=== PATIENT | female | born 1955 | race African-American/Black ===

== ENCOUNTER 2021-03-04 17:50 | Observation (INO) | payer OTHER ==
[2021-03-04 20:31] LABS: BASO % 0.9 % (0-2.0); EOS % 2.6 % (0-4.5); HEMOGLOBIN 11.3 GM/dL (10.7-15.3); LYMPH % 29.4 % (8-40); MCH 29.3 pg (25.7-33.7); MCHC 33.3 g/dl (32.0-36.0); MEAN PLT VOLUME 9.6 fl (7.5-11.1); MONO % 7.6 % (3.8-10.2); NEUT % 59.5 % (42.8-82.8); PLATELET COUNT 217 K/MM3 (134-434); RBC 3.86 M/mm3 (3.60-5.2); WHITE BLOOD COUNT 6.5 K/mm3 (4.0-10.0)
[2021-03-04 20:56] LABS: CALCIUM 9.5 mg/dL (8.5-10.1)
[2021-03-04 20:57] LABS: ALBUMIN 3.3 g/dl (3.4-5.0)
[2021-03-04 21:01] LABS: BILIRUBIN,TOTAL 0.3 mg/dL (0.2-1)
[2021-03-04 21:02] LABS: TOT PROT 7.3 g/dl (6.4-8.2)
[2021-03-04 21:31] LABS: EPI CELLS 13 /uL (0-25.1); HYALINE CASTS 1 /uL (0-3.1); PH,URINE 6.5 (5.0-8.0); URINE APPEARANCE CLEAR; URINE BACTERIA 957 /uL (0-1359); URINE BILIRUBIN NEGATIVE (NEGATIVE); URINE COLOR YELLOW; URINE GLUCOSE (UA) NEGATIVE (NEGATIVE); URINE KETONE NEGATIVE (NEGATIVE); URINE LEUK ESTERASE NEGATIVE (NEGATIVE); URINE NITRITE NEGATIVE (NEGATIVE); URINE PROTEIN NEGATIVE (NEGATIVE); URINE RBC 114 /uL (0-23.9); URINE WBC 21 /uL (0-25.8)
[2021-03-04] MEDS ORDERED: LIDOCAINE PATCH REMOVAL MC SCH (22:00)
[2021-03-04] MEDS ORDERED: ACETAMINOPHEN 1000 MG/100 ML BAG IVPB ONE (22:25)
[2021-03-04] MEDS ORDERED: LIDOCAINE 5% TOPICAL PATCH TP ONE (22:25)
[2021-03-04] MEDS ORDERED: LIDOCAINE 5% TOPICAL PATCH ONE (22:35)
[2021-03-04] MEDS ORDERED: ACETAMINOPHEN INJECTION 100 ML IVPB ONE (22:35)
[2021-03-05] MEDS ORDERED: ACETAMINOPHEN 325 MG TABLET (FP) PO PRN (00:38)
[2021-03-05 02:44] VITALS: BMI 33.3
[2021-03-05 03:57] LABS: URINE APPEARANCE CLEAR; URINE BILIRUBIN NEGATIVE (NEGATIVE); URINE COLOR YELLOW; URINE GLUCOSE (UA) NEGATIVE (NEGATIVE); URINE KETONE TRACE (NEGATIVE); URINE LEUK ESTERASE NEGATIVE (NEGATIVE); URINE NITRITE NEGATIVE (NEGATIVE); URINE PROTEIN NEGATIVE (NEGATIVE); URINE UROBILINOGEN 0.2 mg/dL (0.2-1.0)
[2021-03-05 08:41] LABS: BASO % 0.7 % (0-2.0); EOS % 2.5 % (0-4.5); HEMATOCRIT 32.7 % (32.4-45.2); HEMOGLOBIN 11.1 GM/dL (10.7-15.3); LYMPH % 33.9 % (8-40); MCH 29.2 pg (25.7-33.7); MEAN CELL VOLUME 86.1 fl (80-96); MEAN PLT VOLUME 9.4 fl (7.5-11.1); MONO % 7.2 % (3.8-10.2); NEUT % 55.7 % (42.8-82.8); PLATELET COUNT 244 K/MM3 (134-434); RDW 14.2 % (11.6-15.6); WHITE BLOOD COUNT 5.7 K/mm3 (4.0-10.0)
[2021-03-05 09:10] LABS: CALCIUM 9.9 mg/dL (8.5-10.1)
[2021-03-05 09:11] LABS: BLOOD UREA NITROGEN 8.9 mg/dL (7-18)
[2021-03-05 09:14] LABS: CREATININE 0.8 mg/dL (0.55-1.3); PHOSPHOROUS 2.8 mg/dL (2.5-4.9)
[2021-03-05 09:15] LABS: BILIRUBIN,TOTAL 0.4 mg/dL (0.2-1); TOT PROT 6.7 g/dl (6.4-8.2)
[2021-03-05] MEDS ORDERED: PT OWN MED DRAWER 7, Y5N ONE ×4 (09:57→12:24)
[2021-03-05] MEDS: ENOXAPARIN NA (PORCINE) 40 MG/0.4 ML DISP.SYRIN SQ SCH (10:00)
[2021-03-05] MEDS: LIDOCAINE 5% TOPICAL PATCH TP SCH (10:00)
[2021-03-05] MEDS ORDERED: rOPINIRole HCL 1 MG TABLET (FP) PO SCH (10:15)
[2021-03-05] MEDS: RASAGILINE MESYLATE 1 MG TABLET PO SCH (12:18)
[2021-03-05] MEDS: TORSEMIDE 10 MG TABLET PO SCH (12:22)
[2021-03-05] MEDS: rOPINIRole HCL 1 MG TABLET (FP) PO SCH (22:42)
[2021-03-05] MEDS: LIDOCAINE PATCH REMOVAL MC SCH (22:42)
[2021-03-06] MEDS ORDERED: PT OWN MED DRAWER 7, Y5N ONE ×6 (06:15→22:15)
[2021-03-06 08:24] LABS: HEMATOCRIT 33.6 % (32.4-45.2); HEMOGLOBIN 11.5 GM/dL (10.7-15.3); MCH 29.6 pg (25.7-33.7); MCHC 34.1 g/dl (32.0-36.0); MEAN CELL VOLUME 86.7 fl (80-96); MEAN PLT VOLUME 9.6 fl (7.5-11.1); PLATELET COUNT 228 K/MM3 (134-434); RBC 3.87 M/mm3 (3.60-5.2); RDW 13.7 % (11.6-15.6); WHITE BLOOD COUNT 5.1 K/mm3 (4.0-10.0)
[2021-03-06 08:47] LABS: CALCIUM 9.5 mg/dL (8.5-10.1)
[2021-03-06 08:48] LABS: ALBUMIN 3.1 g/dl (3.4-5.0); BLOOD UREA NITROGEN 13.7 mg/dL (7-18)
[2021-03-06 08:51] LABS: CREATININE 0.8 mg/dL (0.55-1.3)
[2021-03-06 08:54] LABS: TOT PROT 6.8 g/dl (6.4-8.2)
[2021-03-06 08:56] LABS: BILIRUBIN,TOTAL 0.5 mg/dL (0.2-1)
[2021-03-06 09:30] LABS: ERYTHROCYTE SEDIMENTATION RATE 36 mm/hr (0-30)
[2021-03-06] MEDS: RASAGILINE MESYLATE 1 MG TABLET PO SCH (09:32)
[2021-03-06] MEDS: ENOXAPARIN NA (PORCINE) 40 MG/0.4 ML DISP.SYRIN SQ SCH (09:32)
[2021-03-06] MEDS: LIDOCAINE 5% TOPICAL PATCH TP SCH (09:33)
[2021-03-06] MEDS: TORSEMIDE 10 MG TABLET PO SCH (09:40)
[2021-03-06] MEDS: rOPINIRole HCL 0.5 MG TABLET PO SCH ×3 (09:52→19:01)
[2021-03-06] MEDS ORDERED: RASAGILINE MESYLATE 1 MG TABLET PO SCH (18:53)
[2021-03-06] MEDS: rOPINIRole HCL 1 MG TABLET (FP) PO SCH (21:04)
[2021-03-06] MEDS: LIDOCAINE PATCH REMOVAL MC SCH (21:05)
[2021-03-07] MEDS: rOPINIRole HCL 0.5 MG TABLET PO SCH ×3 (06:34→16:41)
[2021-03-07] MEDS ORDERED: PT OWN MED DRAWER 7, Y5N ONE ×5 (09:43→20:18)
[2021-03-07] MEDS: TORSEMIDE 10 MG TABLET PO SCH (09:48)
[2021-03-07] MEDS: ENOXAPARIN NA (PORCINE) 40 MG/0.4 ML DISP.SYRIN SQ SCH (09:48)
[2021-03-07] MEDS: LIDOCAINE 5% TOPICAL PATCH TP SCH (09:49)
[2021-03-07 11:08] LABS: BASO % 0.7 % (0-2.0); EOS % 3.4 % (0-4.5); HEMATOCRIT 33.9 % (32.4-45.2); HEMOGLOBIN 11.3 GM/dL (10.7-15.3); LYMPH % 26.4 % (8-40); MCH 29.1 pg (25.7-33.7); MCHC 33.3 g/dl (32.0-36.0); MEAN CELL VOLUME 87.5 fl (80-96); MEAN PLT VOLUME 9.1 fl (7.5-11.1); NEUT % 62.5 % (42.8-82.8); PLATELET COUNT 235 K/MM3 (134-434); RBC 3.87 M/mm3 (3.60-5.2); RDW 14.1 % (11.6-15.6); WHITE BLOOD COUNT 6.4 K/mm3 (4.0-10.0)
[2021-03-07 11:49] LABS: BLOOD UREA NITROGEN 17.1 mg/dL (7-18)
[2021-03-07] MEDS: KCL 10 MEQ IVPB 10 MEQ/100 ML INFUS.BAG IVPB SCH ×2 (13:42→15:51)
[2021-03-07] MEDS ORDERED: POTASSIUM CHLORIDE TABS 20 MEQ TABLET.ER (FP) PO ONE (14:40)
[2021-03-07] MEDS ORDERED: rOPINIRole HCL 1 MG TABLET (FP) PO SCH (14:46)
[2021-03-07] MEDS: LIDOCAINE PATCH REMOVAL MC SCH (22:00)
[2021-03-08] MEDS: rOPINIRole HCL 0.5 MG TABLET PO SCH ×3 (06:01→17:37)
[2021-03-08 08:10] LABS: HEMATOCRIT 36.5 % (32.4-45.2); HEMOGLOBIN 12.3 GM/dL (10.7-15.3); MCH 29.4 pg (25.7-33.7); MCHC 33.8 g/dl (32.0-36.0); MEAN CELL VOLUME 87.1 fl (80-96); MEAN PLT VOLUME 9.4 fl (7.5-11.1); PLATELET COUNT 211 K/MM3 (134-434); RBC 4.19 M/mm3 (3.60-5.2); RDW 14.3 % (11.6-15.6); WHITE BLOOD COUNT 5.8 K/mm3 (4.0-10.0)
[2021-03-08 08:34] LABS: CALCIUM 10.3 mg/dL (8.5-10.1)
[2021-03-08 08:35] LABS: BLOOD UREA NITROGEN 14.2 mg/dL (7-18)
[2021-03-08 08:38] LABS: CREATININE 0.9 mg/dL (0.55-1.3)
[2021-03-08] MEDS ORDERED: PT OWN MED DRAWER 7, Y5N ONE ×7 (10:24→20:24)
[2021-03-08] MEDS: LIDOCAINE 5% TOPICAL PATCH TP SCH (10:34)
[2021-03-08] MEDS: ENOXAPARIN NA (PORCINE) 40 MG/0.4 ML DISP.SYRIN SQ SCH (10:35)
[2021-03-08] MEDS: TORSEMIDE 10 MG TABLET PO SCH (10:35)
[2021-03-08] MEDS: RASAGILINE MESYLATE 1 MG TABLET PO SCH (10:36)
[2021-03-08] MEDS: LIDOCAINE PATCH REMOVAL MC SCH (21:00)
[2021-03-08] MEDS ORDERED: ROPINIROLE HCL PO SCH (22:00)
[2021-03-09] MEDS: rOPINIRole HCL 0.5 MG TABLET PO SCH ×3 (06:06→16:49)
[2021-03-09] MEDS ORDERED: PT OWN MED DRAWER 7, Y5N ONE ×2 (08:48→12:13)
[2021-03-09] MEDS: ENOXAPARIN NA (PORCINE) 40 MG/0.4 ML DISP.SYRIN SQ SCH (09:20)
[2021-03-09] MEDS: RASAGILINE MESYLATE 1 MG TABLET PO SCH (09:21)
[2021-03-09] MEDS: TORSEMIDE 10 MG TABLET PO SCH (09:22)
[2021-03-09] MEDS: LIDOCAINE 5% TOPICAL PATCH TP SCH (09:22)
[2021-03-09 21:23] VITALS: BP 115/70; PULSE 87; TEMP 97.3
== END 2021-03-09 21:05 ==
LOC: JER 17:50 → J8W 23:02 → INTOOBSV 23:02
PROVIDERS: ADMIT Internal Medicine; ATTEND Internal Medicine
PROC: 3E033NZ Introduction of Analgesics, Hypnotics, Sedatives into Peripheral Vein, Percutaneous Approach (ICD-10-PCS; principal; 2021-03-04)
PROC: 3E023GC Introduction of Other Therapeutic Substance into Muscle, Percutaneous Approach (ICD-10-PCS; 2021-03-04)
DX: G20 Parkinson's disease (principal); Z29.9 Encounter for prophylactic measures, unspecified; M54.9 Dorsalgia, unspecified; E66.8 Other obesity; Z68.33 Body mass index [BMI] 33.0-33.9, adult
CPT/HCPCS: 36415; 70450-TC; 70551-TC; 71045-TC-FY; 72131-TC; 72148-TC; 80048; 80053; 81003; 82607; 82962; 83735; 84100; 85025; 85027; 85651; 86140; 86618; 87086; 93005; 93010; 93971-TC; 96372; 96374; 97116-GP; 97161-GP; 99285-25; C9803; G0378; J0131; U0003; U0005

== ENCOUNTER 2023-02-18 06:23 | Day surgery (SDC) | payer OTHER ==
[2023-02-18 06:54] VITALS: BMI 32.9
[2023-02-18] MEDS ORDERED: MIDAZOLAM HCL 2 MG/2 ML SINGLE DOSE VIAL ONE (07:23)
[2023-02-18] MEDS ORDERED: FENTANYL CITRATE/PF 50 MCG/ML VIAL ONE ×2 (07:23→09:45)
[2023-02-18] MEDS ORDERED: ROPIVACAINE HCL 0.5% 30ML VIAL ONE (07:23)
[2023-02-18] MEDS ORDERED: DEXAMETHASONE SOD PHOSPHATE 4 MG/1 ML VIAL ONE ×2 (07:34→08:13)
[2023-02-18] MEDS ORDERED: ONDANSETRON 4 MG/2 ML VIAL ONE (07:34)
[2023-02-18] MEDS ORDERED: LIDOCAINE HCL/PF 2% SDV 5ML VIAL ONE (07:34)
[2023-02-18] MEDS ORDERED: PROPOFOL 20 ML ONE (07:34)
[2023-02-18] MEDS ORDERED: ceFAZolin SODIUM 1 GM VIAL ONE (07:34)
[2023-02-18] MEDS ORDERED: SEVOFLURANE 250 ML BTL ONE (07:35)
[2023-02-18] MEDS ORDERED: BUPIVACAINE HCL/PF 2.5 MG/ML - 30 ML VIAL IJ ONE (07:50)
[2023-02-18] MEDS ORDERED: KETOROLAC TROMETHAMINE 30 MG/1 ML VIAL ONE (08:13)
[2023-02-18] MEDS ORDERED: ONDANSETRON 4 MG/2 ML VIAL IVPUSH PRN (08:54)
[2023-02-18] MEDS ORDERED: oxyCODONE HCL 5 MG TABLET PO PRN (08:54)
[2023-02-18] MEDS ORDERED: PROMETHAZINE HCL 25 MG/1 ML VIAL IVPB PRN (08:54)
[2023-02-18] MEDS ORDERED: ACETAMINOPHEN 1000 MG/100 ML BAG IVPB PRN (08:54)
[2023-02-18] MEDS ORDERED: LACTATED RINGERS SOLUTION 1,000 ML IV SCH (09:00)
[2023-02-18 09:03] VITALS: TEMP 97.4
[2023-02-18] MEDS ORDERED: oxyCODONE HCL 5 MG TABLET ONE (10:24)
[2023-02-18] MEDS ORDERED: oxyCODONE HCL 5 MG TABLET PO ONE (10:28)
[2023-02-18 10:39] VITALS: RESP 16
[2023-02-18 11:20] VITALS: BP 158/80; PULSE 81
== END 2023-02-18 11:21 | disposition home or self-care (01) ==
LOC: FASU 06:23
PROVIDERS: ATTEND Orthopaedic Surgery
PROC: 0PSJ34Z Reposition Left Radius with Internal Fixation Device, Percutaneous Approach (ICD-10-PCS; principal; 2023-02-18 08:34)
DX: S52.532A Colles' fracture of left radius, initial encounter for closed fracture (principal); X58.XXXA Exposure to other specified factors, initial encounter; Y93.9 Activity, unspecified; Y92.9 Unspecified place or not applicable
CPT/HCPCS: 73110-TC-LT-FY; 94760

== ENCOUNTER 2024-02-09 13:31 | Inpatient (IN) | payer OTHER ==
[2024-02-09 14:52] LABS: BASO % 0.6 % (0-2.0); EOS % 0.5 % (0-4.5); HEMATOCRIT 36.4 % (32.4-45.2); LYMPH % 18.1 % (8-40); MCH 29.4 pg (25.7-33.7); MEAN CELL VOLUME 89.2 fl (80-96); MEAN PLT VOLUME 9.1 fl (7.5-11.1); NEUT % 73.8 % (42.8-82.8); PLATELET COUNT 225 10^3/uL (134-434); RBC 4.08 M/mm3 (3.60-5.2); WHITE BLOOD COUNT 7.9 K/mm3 (4.0-10.0)
[2024-02-09 14:59] LABS: INR 1.24 (0.83-1.09); PROTHROMBIN TIME (PATIENT) 14.4 SEC (9.7-13.0)
[2024-02-09 15:01] LABS: ACTIVATED PTT 26.4 SECONDS (25.2-36.5)
[2024-02-09 15:09] LABS: CHLORIDE 109 mmol/L (98-107); POTASSIUM 4.1 mmol/L (3.5-5.1); SODIUM 137 mmol/L (136-145)
[2024-02-09 15:12] LABS: CALCIUM 9.7 mg/dL (8.5-10.1); GLUCOSE,RANDOM 96 mg/dL (74-106)
[2024-02-09 15:13] LABS: ALBUMIN 3.3 g/dl (3.4-5.0); ANION GAP 2 mmol/L (4-13); BLOOD UREA NITROGEN 15.9 mg/dL (7-18); CO2 26 mmol/L (21-32); MAGNESIUM 2.4 mg/dL (1.8-2.4)
[2024-02-09 15:16] LABS: SGOT/AST 26 U/L (15-37); SGPT/ALT 7 U/L (13-61)
[2024-02-09 15:17] LABS: TOT PROT 7.4 g/dl (6.4-8.2)
[2024-02-09 15:18] LABS: BILIRUBIN,TOTAL 0.3 mg/dL (0.2-1)
[2024-02-09 15:19] LABS: ALK PHOS 88 U/L (45-117)
[2024-02-09 15:38] LABS: PH,URINE 6.5 (5.0-8.0); URINE APPEARANCE CLEAR; URINE BILIRUBIN NEGATIVE (NEGATIVE); URINE COLOR YELLOW; URINE GLUCOSE (UA) NEGATIVE (NEGATIVE); URINE KETONE TRACE (NEGATIVE); URINE LEUK ESTERASE NEGATIVE (NEGATIVE); URINE NITRITE NEGATIVE (NEGATIVE); URINE PROTEIN NEGATIVE (NEGATIVE)
[2024-02-10] MEDS: SODIUM CHLORIDE 1,000 ML IV SCH (01:17)
[2024-02-10 03:19] VITALS: BMI 32.9
[2024-02-10 07:22] LABS: HEMATOCRIT 40.2 % (32.4-45.2); HEMOGLOBIN 13.2 GM/dL (10.7-15.3); MCHC 32.8 g/dl (32.0-36.0); MEAN CELL VOLUME 88.4 fl (80-96); MEAN PLT VOLUME 9.2 fl (7.5-11.1); PLATELET COUNT 263 10^3/uL (134-434); RBC 4.55 M/mm3 (3.60-5.2); RDW 14.5 % (11.6-15.6); WHITE BLOOD COUNT 9.2 K/mm3 (4.0-10.0)
[2024-02-10 07:32] LABS: ALBUMIN 3.5 g/dl (3.4-5.0); BLOOD UREA NITROGEN 13.8 mg/dL (7-18); CALCIUM 10.3 mg/dL (8.5-10.1); MAGNESIUM 2.5 mg/dL (1.8-2.4)
[2024-02-10 07:34] LABS: CREATININE 0.9 mg/dL (0.55-1.3); PHOSPHOROUS 2.6 mg/dL (2.5-4.9)
[2024-02-10 07:37] LABS: BILIRUBIN,TOTAL 0.4 mg/dL (0.2-1)
[2024-02-10] MEDS: FLUDROCORTISONE ACETATE 0.1 MG TABLET (FP) PO SCH (10:00)
[2024-02-10] MEDS: ENOXAPARIN NA (PORCINE) 40 MG/0.4 ML DISP.SYRIN SQ SCH (10:01)
[2024-02-10] MEDS: MIDODRINE HCL 2.5 MG TABLET PO SCH (15:05)
[2024-02-10] MEDS: ROSUVASTATIN CA 5 MG TABLET PO SCH (22:59)
[2024-02-11 08:27] LABS: BASO % 0.5 % (0-2.0); EOS % 1.6 % (0-4.5); HEMATOCRIT 37.1 % (32.4-45.2); HEMOGLOBIN 12.1 GM/dL (10.7-15.3); LYMPH % 22.7 % (8-40); MCHC 32.7 g/dl (32.0-36.0); MEAN CELL VOLUME 88.8 fl (80-96); MEAN PLT VOLUME 9.5 fl (7.5-11.1); MONO % 8.2 % (3.8-10.2); PLATELET COUNT 230 10^3/uL (134-434); POTASSIUM 3.9 mmol/L (3.5-5.1); RBC 4.18 M/mm3 (3.60-5.2); RDW 14.2 % (11.6-15.6); WHITE BLOOD COUNT 6.3 K/mm3 (4.0-10.0)
[2024-02-11 08:33] LABS: CALCIUM 10.2 mg/dL (8.5-10.1)
[2024-02-11 08:34] LABS: ALBUMIN 3.2 g/dl (3.4-5.0); BLOOD UREA NITROGEN 18.4 mg/dL (7-18)
[2024-02-11 08:38] LABS: BILIRUBIN,TOTAL 0.4 mg/dL (0.2-1)
[2024-02-11] MEDS ORDERED: ACETAMINOPHEN 325 MG TABLET (FP) PO PRN (09:18)
[2024-02-11] MEDS: MIDODRINE HCL 5 MG TABLET PO SCH (17:37)
[2024-02-11] MEDS: PRAMIPEXOLE DIHYDROCHLORIDE 0.25 MG TABLET PO SCH (21:26)
[2024-02-12] MEDS: RIVASTIGMINE TARTRATE 1.5 MG CAPSULE PO SCH (06:22)
[2024-02-12] MEDS: MIDODRINE HCL 5 MG TABLET PO SCH (06:22)
[2024-02-12 08:34] LABS: POTASSIUM 3.9 mmol/L (3.5-5.1)
[2024-02-12 08:42] LABS: HEMATOCRIT 35.4 % (32.4-45.2); MCH 29.5 pg (25.7-33.7); MCHC 33.8 g/dl (32.0-36.0); MEAN CELL VOLUME 87.4 fl (80-96); MEAN PLT VOLUME 9.5 fl (7.5-11.1); PLATELET COUNT 228 10^3/uL (134-434); RBC 4.06 M/mm3 (3.60-5.2); RDW 14.2 % (11.6-15.6); WHITE BLOOD COUNT 6.2 K/mm3 (4.0-10.0)
[2024-02-12 08:57] LABS: BLOOD UREA NITROGEN 17.6 mg/dL (7-18); CALCIUM 10.1 mg/dL (8.5-10.1)
[2024-02-12 09:03] LABS: CREATININE 0.9 mg/dL (0.55-1.3)
[2024-02-13 07:33] LABS: BASO % 0.6 % (0-2.0); EOS % 2.4 % (0-4.5); HEMATOCRIT 36.1 % (32.4-45.2); HEMOGLOBIN 12.2 GM/dL (10.7-15.3); LYMPH % 33.5 % (8-40); MCH 29.7 pg (25.7-33.7); MCHC 33.9 g/dl (32.0-36.0); MEAN CELL VOLUME 87.5 fl (80-96); MEAN PLT VOLUME 9.6 fl (7.5-11.1); MONO % 7.6 % (3.8-10.2); NEUT % 55.9 % (42.8-82.8); PLATELET COUNT 226 10^3/uL (134-434); RBC 4.12 M/mm3 (3.60-5.2); RDW 14.1 % (11.6-15.6); WHITE BLOOD COUNT 5.9 K/mm3 (4.0-10.0)
[2024-02-13 07:46] LABS: POTASSIUM 3.8 mmol/L (3.5-5.1)
[2024-02-13 07:51] LABS: BLOOD UREA NITROGEN 16.9 mg/dL (7-18); CALCIUM 10.2 mg/dL (8.5-10.1)
[2024-02-13 07:55] LABS: CREATININE 0.9 mg/dL (0.55-1.3)
[2024-02-13] MEDS: MIDODRINE HCL 5 MG TABLET PO SCH (12:10)
[2024-02-13 15:04] VITALS: BP 98/61; PULSE 72; RESP 18; TEMP 98.3
== END 2024-02-13 16:10 | disposition home health service (06) | DRG 312 ==
LOC: JER 13:31 → JERBED 19:56 → UNDOADMOB 19:56 → OBSVTOIN 21:58 → INTOOBSV 21:58 → J4W 02-10 03:01 → JERBED 02-10 03:01 → J4W 02-10 09:48 → JERBED 02-10 09:48 → OBSVTOIN 02-12 12:17
PROVIDERS: ADMIT Student in an Organized Health Care Education/Training Program; ATTEND Internal Medicine
DX: I95.1 Orthostatic hypotension (principal); G90.1 Familial dysautonomia [Riley-Day]; G20.A1 Parkinson's disease without dyskinesia, without mention of fluctuations; E78.5 Hyperlipidemia, unspecified; G47.33 Obstructive sleep apnea (adult) (pediatric)
CPT/HCPCS: 0241U-QW; 36415; 70450-TC; 71046-TC-FY; 72125-TC; 80048; 80053; 81003; 82607; 83735; 84100; 84439; 84443; 84484; 85025; 85027; 85610; 85730; 86780; 87086; 93005; 93010; 97116-GP; 97162-GP; 99285-25; G0378

== ENCOUNTER 2024-09-29 16:49 | Inpatient (IN) | payer OTHER ==
[2024-09-29] MEDS: CARBIDOPA/LEVODOPA 25/100 TABLET (FP) PO ONE ×2 (18:05→21:22)
[2024-09-29] MEDS: LIDOCAINE 4% PATCH TP ONE (18:05)
[2024-09-29] MEDS: ACETAMINOPHEN 500 MG TABLET (FP) PO ONE (18:05)
[2024-09-29] MEDS ORDERED: LIDOCAINE 4% PATCH TP ONE (18:11)
[2024-09-29] MEDS ORDERED: CLINDAMYCIN 600MG PREMIX IVPB 600 MG/50 ML BAG IVPB ONE (18:11)
[2024-09-29] MEDS ORDERED: CARBIDOPA/LEVODOPA 25/100 TABLET (FP) ONE ×2 (18:11→21:16)
[2024-09-29] MEDS ORDERED: ACETAMINOPHEN 500 MG TABLET (FP) ONE (18:23)
[2024-09-29 18:51] LABS: BASO % 0.4 % (0-2.0); EOS % 0.6 % (0-4.5); HEMATOCRIT 35.1 % (32.4-45.2); HEMOGLOBIN 11.5 GM/dL (10.7-15.3); LYMPH % 10.3 % (8-40); MCH 29.2 pg (25.7-33.7); MCHC 32.8 g/dl (32.0-36.0); MEAN CELL VOLUME 89.3 fl (80-96); MEAN PLT VOLUME 8.8 fl (7.5-11.1); MONO % 6.7 % (3.8-10.2); PLATELET COUNT 222 10^3/uL (134-434); RBC 3.93 M/mm3 (3.60-5.2); WHITE BLOOD COUNT 14.2 K/mm3 (4.0-10.0)
[2024-09-29 19:08] LABS: CHLORIDE 108 mmol/L (98-107); POTASSIUM 5.4 mmol/L (3.5-5.1); SODIUM 138 mmol/L (136-145)
[2024-09-29 19:11] LABS: CALCIUM 10.1 mg/dL (8.5-10.1)
[2024-09-29 19:12] LABS: ALBUMIN 3.1 g/dl (3.4-5.0); ANION GAP 5 mmol/L (4-13); BLOOD UREA NITROGEN 20.6 mg/dL (7-18); CO2 25 mmol/L (21-32); GLUCOSE,RANDOM 107 mg/dL (74-106)
[2024-09-29 19:15] LABS: CREATININE 1.2 mg/dL (0.55-1.3); PHOSPHOROUS 2.5 mg/dL (2.5-4.9); SGOT/AST 57 U/L (15-37); SGPT/ALT 15 U/L (13-61)
[2024-09-29 19:17] LABS: ALK PHOS 93 U/L (45-117); BILIRUBIN,TOTAL 0.7 mg/dL (0.2-1); TOT PROT 7.5 g/dl (6.4-8.2)
[2024-09-29 20:20] LABS: POTASSIUM 3.8 mmol/L (3.5-5.1)
[2024-09-29 20:22] LABS: BLOOD UREA NITROGEN 20.2 mg/dL (7-18); CALCIUM 10.1 mg/dL (8.5-10.1)
[2024-09-29 20:25] LABS: CREATININE 1.1 mg/dL (0.55-1.3)
[2024-09-29] MEDS: CLINDAMYCIN 600MG PREMIX IVPB 600 MG/50 ML BAG IVPB ONE (20:50)
[2024-09-30 01:51] LABS: PH,URINE 5.5 (5.0-8.0); URINE APPEARANCE CLEAR; URINE BILIRUBIN NEGATIVE (NEGATIVE); URINE COLOR YELLOW; URINE GLUCOSE (UA) NEGATIVE (NEGATIVE); URINE KETONE NEGATIVE (NEGATIVE); URINE LEUK ESTERASE NEGATIVE (NEGATIVE); URINE NITRITE NEGATIVE (NEGATIVE); URINE PROTEIN TRACE (NEGATIVE)
[2024-09-30] MEDS ORDERED: ALBUTEROL SO4 HFA INHALER IH PRN (02:39)
[2024-09-30] MEDS: PIPERACILLIN/TAZOB 3.375 GM 3.375 GM in DEXTROSE 5%-WATER - 50 ML IVPB SCH (03:40)
[2024-09-30] MEDS ORDERED: PIPERACILLIN/TAZOB 3.375 GM 3.375 GM/50 ML BAG IVPB ONE (03:45)
[2024-09-30 05:08] VITALS: BMI 30.9
[2024-09-30] MEDS: MIDODRINE HCL 5 MG TABLET PO SCH (06:21)
[2024-09-30 09:18] LABS: BASO % 0.4 % (0-2.0); EOS % 1.8 % (0-4.5); HEMOGLOBIN 11.2 GM/dL (10.7-15.3); LYMPH % 8.2 % (8-40); MCH 29.5 pg (25.7-33.7); MEAN CELL VOLUME 89.2 fl (80-96); MEAN PLT VOLUME 8.8 fl (7.5-11.1); MONO % 5.1 % (3.8-10.2); NEUT % 84.5 % (42.8-82.8); PLATELET COUNT 219 10^3/uL (134-434); RBC 3.81 M/mm3 (3.60-5.2); WHITE BLOOD COUNT 11.1 K/mm3 (4.0-10.0)
[2024-09-30 09:38] LABS: POTASSIUM 3.9 mmol/L (3.5-5.1)
[2024-09-30 09:40] LABS: CALCIUM 9.8 mg/dL (8.5-10.1)
[2024-09-30 09:41] LABS: BLOOD UREA NITROGEN 17.8 mg/dL (7-18); MAGNESIUM 1.9 mg/dL (1.8-2.4)
[2024-09-30 09:44] LABS: CREATININE 1.1 mg/dL (0.55-1.3); PHOSPHOROUS 2.2 mg/dL (2.5-4.9)
[2024-09-30 09:45] LABS: BILIRUBIN,TOTAL 0.6 mg/dL (0.2-1); TOT PROT 6.8 g/dl (6.4-8.2)
[2024-09-30] MEDS: ENOXAPARIN NA (PORCINE) 40 MG/0.4 ML DISP.SYRIN SQ SCH (10:47)
[2024-09-30] MEDS: CEFTRIAXONE 1 G/50 ML PREMIX 50 ML IVPB SCH (17:22)
[2024-09-30] MEDS ORDERED: PIPERACILLIN/TAZOB 3.375 GM 50 ML IVPB SCH (18:00)
[2024-09-30] MEDS: ROSUVASTATIN CA 5 MG TABLET PO SCH (21:03)
[2024-10-02] MEDS ORDERED: PIPERACILLIN/TAZOB 3.375 GM 50 ML IVPB SCH (02:00)
[2024-10-02] MEDS: MIDODRINE HCL 5 MG TABLET PO SCH (05:29)
[2024-10-02 06:31] VITALS: RESP 18
[2024-10-02] MEDS: CARBIDOPA/LEVODOPA 25/250 TABLET (FP) PO SCH (09:31)
[2024-10-02] MEDS ORDERED: CARBIDOPA/LEVODOPA 25/250 TABLET (FP) PO SCH (10:00)
[2024-10-02 10:40] LABS: BASO % 0.4 % (0-2.0); EOS % 2.8 % (0-4.5); HEMATOCRIT 38.3 % (32.4-45.2); HEMOGLOBIN 12.5 GM/dL (10.7-15.3); MCH 29.4 pg (25.7-33.7); MCHC 32.6 g/dl (32.0-36.0); MEAN CELL VOLUME 90.4 fl (80-96); MONO % 4.5 % (3.8-10.2); NEUT % 79.3 % (42.8-82.8); PLATELET COUNT 256 10^3/uL (134-434); RBC 4.24 M/mm3 (3.60-5.2); RDW 14.1 % (11.6-15.6); WHITE BLOOD COUNT 9.3 K/mm3 (4.0-10.0)
[2024-10-02 10:44] LABS: POTASSIUM 4.2 mmol/L (3.5-5.1)
[2024-10-02 10:46] LABS: CALCIUM 10.4 mg/dL (8.5-10.1)
[2024-10-02 10:48] LABS: BLOOD UREA NITROGEN 16.4 mg/dL (7-18); MAGNESIUM 2.2 mg/dL (1.8-2.4)
[2024-10-02 10:50] LABS: CREATININE 1.2 mg/dL (0.55-1.3); PHOSPHOROUS 2.6 mg/dL (2.5-4.9)
[2024-10-02 10:52] LABS: BILIRUBIN,TOTAL 0.4 mg/dL (0.2-1); TOT PROT 6.8 g/dl (6.4-8.2)
[2024-10-02] MEDS: ACETAMINOPHEN 325 MG TABLET (FP) PO PRN (13:38)
[2024-10-03] MEDS: BENZOCAINE/MENTHOL 1 EACH LOZENGE MM PRN (10:02)
[2024-10-04 19:09] VITALS: BP 117/60; PULSE 97; TEMP 98.1
== END 2024-10-04 19:18 | DRG 57 ==
LOC: JER 16:49 → JERBED 18:31 → OBSVTOIN 09-30 00:15 → J5S 09-30 04:45
PROVIDERS: ADMIT Internal Medicine; ATTEND Internal Medicine
DX: G20.A1 Parkinson's disease without dyskinesia, without mention of fluctuations (principal); L03.114 Cellulitis of left upper limb; R29.6 Repeated falls
CPT/HCPCS: 36415; 70450-TC; 71045-TC-FY; 72125-TC; 72170-TC-FY; 73030-TC-RT-FY; 73070-TC-LT-FY; 73090-TC-LT-FY; 73521-TC-FY; 76882-TC-RT-FY; 80048; 80053; 81003; 82550; 82553; 82746; 83735; 84100; 84484; 85025; 85651; 86140; 87040; 87081; 87086; 93005; 93010; 97116-GP; 97161-GP; 99285-25; G0378